=== PATIENT | female | born 1945 | race Caucasian/White ===

== ENCOUNTER → 2018-02-04 | Day surgery (SDC) | payer MEDICARE, OTHER ==
[~2018-02-04] MED LIST: LIDOCAINE 1%/EPINEPHRINE INJ 20 ML VIAL ONE
--- NOTE | 2018-02-04 11:34 | Operative Report ---
Operative Report DATE OF SURGERY: 02/04/18 PREOPERATIVE DIAGNOSIS: Cluster of microcalcifications mid lateral position right breast POSTOPERATIVE DIAGNOSIS: Same OPERATION: 1. Stereotactically incisional mammotomy core biopsies right breast. 2. Placement of the dumbbell shaped clip marker right breast. 3. Interpretation of intraoperative mammography SURGEON: MARQUITA GUAMAN ANESTHESIA: Local TISSUE REMOVED OR ALTERED: Multiple cores right breast COMPLICATIONS: None ESTIMATED BLOOD LOSS: Scant INTRAOPERATIVE FINDINGS: See below PROCEDURE: The patient was taken to the radiology waiting area to the main stereotactic procedure room in the radiology suite where the right breast was placed in compression. The target microcalcifications were localized using a lateral approach. Surgical plan surgical timeout were conducted. The surface of the right breast was exposed, prepped with Betadine. Skin was anesthetized 1% plain lidocaine. A small viral was made in the skin with the 11 blade, mammotome advanced to the appropriate depth. Pre-and post fire films showed good alignment between the mammotome and the target cluster microcalcifications. We performed core biopsy 12 of the target tissue. Specimens were collected and core Fernando imaged with the portable radiology machine. This showed retention of the target microcalcifications. We returned to the breast, remove the mammotome from the introducer sheath, and deployed a dumbbell shaped clip into the cavity. Post clip deployment mammograms retained for the record showing retention of the clip in the substance of the right breast. Specimens were sent for permanent analysis. Introducer sheath removed from the right breast, right breast breast pressed into compression with 4 x 4's. The patient tolerated the procedure well. Discharge instructions provided.
--- NOTE | 2018-02-04 11:35 | Discharge Summary ---
Discharge Summary (SDC) - Discharge Final Diagnosis: Microcalcifications right breast Date of Surgery: 02/04/18 Discharge Date: 02/04/18 Condition: Good Treatment or Instructions: Patient resume preoperative medications, diet and activity; she is instructed wear supportive bra; she will take Tylenol Motrin as needed pain. Follow-up with [facility], Dr. Palacio, in 1-2 weeks. Referrals: TOSHA ZULETA MD [Primary Care Provider] - Discharge Diet: As Tolerated Discharge Activity: Activity As Tolerated Home Care Assistance: None Needed Report the Following to Your Physician Immediately: Shortness of Breath, Increase in Pain, Fever over 101 Degrees
--- NOTE | 2018-02-10 17:02 | WOMENS IMAGING REPORT ---
EXAM DESCRIPTION: STEREO BREAST BX; RIGHT DIG DX MAMMO NO CHG COMPLETED DATE/TIME: 02/04/2018 1:02 pm; 02/04/2018 12:57 pm REASON FOR STUDY: RIGHT BREAST MICROCALCS (R92.0); RT BREAST CALCS;R92.0 R92.0 MAMMOGRAPHIC MICROCA LCIFICATION FOUND ON DX IMAGING OF COMPARISON: RECENT MAMMOGRAMS UNAVAILABLE LIMITATIONS: None. PROCEDURE: Vacuum-assisted stereotactic-guided biopsy of the lesion in the right breast performed by Dr. Taylor who also targeted the lesion. Using stereotactic guidance, a vacuum-assisted core biopsy of the targeted lesion was performed. A r ibbon clip was deployed at the biopsy site. Post procedure image reveals the clip at the biopsy site . TECHNIQUE: Images from the stereotactic unit acquired during the procedure. Specimen radiography performed. Yes. Post- procedure image acquired post-clip placement. Yes. Post procedure 2 view mammograms performed in the mammography suite. Yes. FINDINGS: SPECIMEN RADIOGRAPH:Calcifications identified.. POST PROCEDURE MAMMOGRAMS FOR MARKER PLACEMENT: Yes. POST PROCEDURE MAMMOGRAM: Clip is in expected location. No significant hematoma. PATHOLOGY: Fibroadenoma with stromal calcification. No carcinoma identified. CONCORDANT: Yes. The operating surgeon was notified of the findings. IMPRESSION: SUCCESSFUL STEREOTACTIC-GUIDED BIOPSY OF LESION IN THE RIGHT BREAST. BIOPSY RESULTS ARE CONCORDANT WITH IMAGING FINDINGS. BI-RADS 2, benign findings Follow-up as per Dr. Taylor TECHNICAL DOCUMENTATION: JOB ID: [id number] [employer]- All Rights Reserved Reading location - IP/workstation name: [facility]
== END ==
LOC: RAD 10:10
PROVIDERS: ATTEND Surgery
DX: R92.0 Mammographic microcalcification found on diagnostic imaging of breast (principal)
CPT/HCPCS: 88305 ×2; 19081; J3490